=== PATIENT | male | born 1955 | race Caucasian/White ===

== ENCOUNTER 2017-02-11 13:53 | Inpatient (IN) | payer MEDICAID ==
[2017-02-11] MEDS ORDERED: methylPREDNISolone Sodium Succinate 125 MG/2 ML SDV IVPUSH ONE (14:17)
[2017-02-11] MEDS ORDERED: Albuterol/Ipratropium 3.0-0.5 MG/3 ML Neb Soln NEB ONE (14:17)
--- NOTE | 2017-02-11 14:17 | EDM.PDOC ---
ED HPI GENERAL MEDICAL PROBLEM - General Chief Complaint: Respiratory Problem Stated Complaint: FROM CLINIC SICK Time Seen by Provider: 02/11/17 14:17 Source of Information: Reports: Patient, Old Records, RN, RN Notes Reviewed History Limitations: Reports: No Limitations - History of Present Illness INITIAL COMMENTS - FREE TEXT/NARRATIVE: Sent from clinic due to shortness of breath and low oxygen sats. Pt state he developed a cough a week ago and has been having progressively worsening shortness of breath. He quit smoking one week ago. Denies fever, chest pain, or increasing edema. He has inhalers at home, but no nebulizer and no home oxygen. Onset: Gradual Duration: Week(s): (1) Location: Reports: Chest Severity: Severe Improves with: Reports: None Worsens with: Reports: Other (activity) Associated Symptoms: Reports: No Other Symptoms Treatments [employer]: Reports: Breathing Treatments (inhaler) - Related Data Allergies Allergy/AdvReac Type Severity Reaction Status Date / Time No Known Allergies Allergy Verified 02/10/13 07:02 Home Meds: Home Meds Acetaminophen/HYDROcodone [[place] 325-5 MG] 1 - 2 tab PO Q6H PRN 02/10/13 [ History] Digoxin 0.25 mg PO 02/10/13 [History] Warfarin [Coumadin] 02/10/13 [History] Warfarin [Coumadin] 7.5 mg PO 6XDAY 02/10/13 [History] metFORMIN [metFORMIN XR] 500 mg PO BIDM 02/10/13 [History] Past Medical History Cardiovascular History: Reports: Afib Respiratory History: Reports: COPD Endocrine/Metabolic History: Reports: Diabetes, Type II Social & Family History - Family History Family Medical History: Noncontributory - Tobacco Use Years of Tobacco use: 30 - Alcohol Use Days Per Week of Alcohol Use: 1 Number of Drinks Per Day: 1 Total Drinks Per Week: 1 - Recreational Drug Use Recreational Drug Use: No - Living Situation & Occupation Living situation: Reports: with Significant Other Occupation: Retired ED ROS GENERAL - Review of Systems Review Of Systems: ROS reveals no pertinent complaints other than HPI. ED EXAM, GENERAL - Physical Exam Exam: See Below Exam Limited By: No Limitations General Appearance: Alert, No Apparent Distress, Other (chronically ill appearing) Nose: Normal Inspection Throat/Mouth: Normal Oropharynx, Normal Voice, No Airway Compromise Head: Atraumatic, Normocephalic Neck: Normal Inspection, Supple, Non-Tender, Full Range of Motion Respiratory/Chest: No Respiratory Distress, No Accessory Muscle Use, Chest Non- Tender, Decreased Breath Sounds, Crackles, Wheezing Cardiovascular: Regular Rate, Rhythm, Other (B/L lower ext. edema R>L which is chronic and stable per pt.) GI/Abdominal: Normal Bowel Sounds, Soft, Non-Tender, No Distention (Male) Exam: Deferred Rectal (Males) Exam: Deferred Back Exam: Normal Inspection Extremities: Non-Tender, Pedal Edema Neurological: Alert, Oriented, CN II-XII Intact, Normal Cognition, Other ( chronic stable motor deficits) Psychiatric: Anxious Skin Exam: Warm, Dry, Intact, Normal Color, No Rash Course - Vital Signs Last Recorded V/S: Last Vital Signs Temp 36.9 C 02/11/17 14:16 Pulse 79 02/11/17 14:30 Resp 24 H 02/11/17 14:16 BP 108/74 02/11/17 14:16 Pulse Ox 82 L 02/11/17 14:16 - Orders/Labs/Meds Orders: Active Orders 24 hr Category Date Time Status Peripheral IV Care [RC] . DIRECTED Care 02/11/17 14:18 Active RT Aerosol Therapy [RC] ASDIRECTED Care 02/11/17 14:18 Active CULTURE BLOOD [BC] Stat Lab 02/11/17 14:18 Received CULTURE BLOOD [BC] Stat Lab 02/11/17 14:53 Received UA W/MICROSCOPIC [URIN] Stat Lab 02/11/17 15:15 Received Potassium Chloride [KCl 10 MEQ in Water 100 ML] 10 meq Med 02/11/17 15:02 Active Premix Bag 1 bag IV ONETIME Sodium Chloride 0.9% [Saline Flush] Med 02/11/17 14:17 Active 10 ml FLUSH ASDIRECTED PRN Blood Culture x2 Reflex Set [OM.PC] Stat Oth 02/11/17 14:18 Ordered Peripheral IV Insertion Adult [OM.PC] Stat Oth 02/11/17 14:17 Ordered Medication Orders Potassium Chloride 10 meq/ (Premix) 100 mls @ 100 mls/hr IV ONETIME ONE Stop: 02/11/17 16:01 Last Admin: 02/11/17 15:24 Dose: 100 mls/hr Sodium Chloride (Saline Flush) 10 ml FLUSH ASDIRECTED PRN PRN Reason: Keep Vein Open Last Admin: 02/11/17 15:23 Dose: 10 ml Labs: Laboratory Tests 02/11/17 02/11/17 02/11/17 Range/Units 14:18 14:18 14:18 WBC 11.4 H (5.0-10.0) 10^3/uL RBC 5.10 (4.6-6.2) 10^6/uL Hgb 15.6 (14.0-18.0) g/dL Hct 45.7 (40.0-54.0) % MCV 89.6 (80-100) fL MCH 30.6 (27.0-34.0) pg MCHC 34.1 (33.0-35.0) g/dL Plt Count 142 L (150-450) 10^3/uL Neut % (Auto) 81.6 H (42.2-75.2) % Lymph % (Auto) 8.5 L (20.5-50.1) % Custer % (Auto) 9.2 H (2-8) % Eos % (Auto) 0.5 L (1.0-3.0) % Baso % (Auto) 0.2 (0.0-1.0) % PT (9.0-12.0) SEC INR (0.9-1.2) Sodium 138 (135-145) mmol/L Potassium 2.9 L D (3.6-5.0) mmol/L Chloride 94 L D (101-111) mmol/L Carbon Dioxide 32.0 H (21.0-31.0) mmol/L Anion Gap 14.9 BUN 18 (7-18) mg/dL Creatinine 0.8 (0.6-1.3) mg/dL Est Cr Clr Drug Dosing 122.18 mL/min Estimated GFR (MDRD) > 60 BUN/Creatinine Ratio 22.50 Glucose 129 H (74-105) mg/dL Lactic Acid 1.9 (0.5-2.2) mmol/L Calcium 9.2 (8.4-10.2) mg/dl Total Bilirubin 1.2 H (0.2-1.0) mg/dL AST 33 (10-42) IU/L ALT 21 (10-60) IU/L Alkaline Phosphatase 80 (42-121) IU/L B-Natriuretic Peptide 24 (0-100) pg/ml Total Protein 7.1 (6.7-8.2) g/dl Albumin 4.0 (3.2-5.5) g/dl Globulin 3.1 Albumin/Globulin Ratio 1.29 02/11/17 Range/Units 14:18 WBC (5.0-10.0) 10^3/uL RBC (4.6-6.2) 10^6/uL Hgb (14.0-18.0) g/dL Hct (40.0-54.0) % MCV (80-100) fL MCH (27.0-34.0) pg MCHC (33.0-35.0) g/dL Plt Count (150-450) 10^3/uL Neut % (Auto) (42.2-75.2) % Lymph % (Auto) (20.5-50.1) % Custer % (Auto) (2-8) % Eos % (Auto) (1.0-3.0) % Baso % (Auto) (0.0-1.0) % PT 26.1 H (9.0-12.0) SEC INR 2.6 H (0.9-1.2) Sodium (135-145) mmol/L Potassium (3.6-5.0) mmol/L Chloride (101-111) mmol/L Carbon Dioxide (21.0-31.0) mmol/L Anion Gap BUN (7-18) mg/dL Creatinine (0.6-1.3) mg/dL Est Cr Clr Drug Dosing mL/min Estimated GFR (MDRD) BUN/Creatinine Ratio Glucose (74-105) mg/dL Lactic Acid (0.5-2.2) mmol/L Calcium (8.4-10.2) mg/dl Total Bilirubin (0.2-1.0) mg/dL AST (10-42) IU/L ALT (10-60) IU/L Alkaline Phosphatase (42-121) IU/L B-Natriuretic Peptide (0-100) pg/ml Total Protein (6.7-8.2) g/dl Albumin (3.2-5.5) g/dl Globulin Albumin/Globulin Ratio Meds: Medications Generic Name Dose Route Start Last Admin Trade Name Freq PRN Reason Stop Dose Admin Potassium Chloride 10 meq/ 100 mls @ 100 mls/hr 02/11/17 15:02 02/11/17 15:24 Premix IV 02/11/17 16:01 100 mls/hr ONETIME ONE Administration Sodium Chloride 10 ml 02/11/17 14:17 02/11/17 15:23 Saline Flush FLUSH 10 ml ASDIRECTED PRN Administration Keep Vein Open Discontinued Medications Generic Name Dose Route Start Last Admin Trade Name Freq PRN Reason Stop Dose Admin Albuterol/Ipratropium 3 ml 02/11/17 14:17 02/11/17 14:30 Duoneb 3.0-0.5 Mg/3 Ml NEB 02/11/17 14:18 3 ml ONETIME ONE Administration Lidocaine HCl 1 ml 02/11/17 15:02 02/11/17 15:31 Xylocaine-Mpf 1% INJECT 02/11/17 15:03 1 ml ONETIME ONE Administration Methylprednisolone Sodium Succinate 125 mg 02/11/17 14:17 02/11/17 15:21 Solu-Medrol IVPUSH 02/11/17 14:18 125 mg ONETIME ONE Administration Potassium Chloride 40 meq 02/11/17 15:03 02/11/17 15:20 Klor-Con 10 PO 02/11/17 15:04 40 meq ONETIME ONE Administration - Radiology Interpretation Free Text/Narrative:: CXR: COPD, see Rad. report. Departure - Departure Time of Disposition: 15:40 (admit to Dr. Stewart) Disposition: Admitted As Inpatient 64 Condition: Serious Clinical Impression: Acute exacerbation of COPD with asthma, Hypoxia, Hypokalemia - Discharge Information Forms: ED Department Discharge - My Orders Last 24 Hours: My Active Orders 02/11/17 14:17 Sodium Chloride 0.9% [Saline Flush] 10 ml FLUSH ASDIRECTED PRN Peripheral IV Insertion Adult [OM.PC] Stat 02/11/17 14:18 Peripheral IV Care [RC] . DIRECTED RT Aerosol Therapy [RC] ASDIRECTED CULTURE BLOOD [BC] Stat Blood Culture x2 Reflex Set [OM.PC] Stat 02/11/17 14:53 CULTURE BLOOD [BC] Stat 02/11/17 15:02 Potassium Chloride [KCl 10 MEQ in Water 100 ML] 10 meq Premix Bag 1 bag IV ONETIME 02/11/17 15:15 UA W/MICROSCOPIC [URIN] Stat - Assessment/Plan Last 24 Hours: My Active Orders 02/11/17 14:17 Sodium Chloride 0.9% [Saline Flush] 10 ml FLUSH ASDIRECTED PRN Peripheral IV Insertion Adult [OM.PC] Stat 02/11/17 14:18 Peripheral IV Care [RC] . DIRECTED RT Aerosol Therapy [RC] ASDIRECTED CULTURE BLOOD [BC] Stat Blood Culture x2 Reflex Set [OM.PC] Stat 02/11/17 14:53 CULTURE BLOOD [BC] Stat 02/11/17 15:02 Potassium Chloride [KCl 10 MEQ in Water 100 ML] 10 meq Premix Bag 1 bag IV ONETIME 02/11/17 15:15 UA W/MICROSCOPIC [URIN] Stat
[2017-02-11 14:46] LABS: CHLORIDE,CL 94 mmol/L (101-111); SODIUM,NA 138 mmol/L (135-145)
[2017-02-11] MEDS ORDERED: Potassium Chloride 10 MEQ in Premix Bag 1 BAG IV ONE (15:02)
[2017-02-11] MEDS ORDERED: Lidocaine 1% 30 ML SDV INJECT ONE (15:02)
[2017-02-11] MEDS ORDERED: Potassium Chloride 10 MEQ Tab.ER PO ONE (15:03)
[2017-02-11] MEDS: Sodium Chloride 0.9% 10 ML Syringe FLUSH PRN ×2 (15:23→16:50)
--- NOTE | 2017-02-11 15:32 | CR ---
CLINICAL HISTORY: 61 year-old wheelchair patient with cough and dyspnea (history of heart disease, i. e., atrial fibrillation). INTERPRETATION: Chronic mild bronchitic pattern with underlying prominence of the proximal pulmonary artery segments and generalized mild air trapping characteristic of reactive airway disease. Normal cardiac silhouette. No new cephalization of vascular flow, signs of alveolar edema or dependen t pleural effusion compared to 13 June 2011 exam. No lung mass, hilar lymphadenopathy or focal lobar pneumonia. No atelectasis/collapse. No pneumothora x. CONCLUSION: No acute new cardiopulmonary abnormality.
[2017-02-11] MEDS ORDERED: Acetaminophen/HYDROcodone 325-5 MG Tab PO PRN (16:14)
[2017-02-11] MEDS ORDERED: cefTRIAXone 2 GM Vial IVPUSH SCH (16:15)
[2017-02-11] MEDS ORDERED: Azithromycin 500 MG in Sodium Chloride 0.9% 250 ML IV SCH (16:15)
[2017-02-11] MEDS ORDERED: methylPREDNISolone Sodium Succinate 40 MG/1 ML SDV IVPUSH SCH (16:15)
[2017-02-11] MEDS ORDERED: Potassium Chloride 10 MEQ in Premix Bag 1 BAG IV SCH (16:15)
[2017-02-11] MEDS ORDERED: Albuterol/Ipratropium 3.0-0.5 MG/3 ML Neb Soln NEB SCH (16:15)
[2017-02-11] MEDS ORDERED: Zolpidem 5 MG Tab PO PRN (16:16)
[2017-02-11] MEDS ORDERED: Acetaminophen 325 MG Tab PO PRN (16:16)
[2017-02-11] MEDS ORDERED: Ondansetron 4 MG Tab.DIS PO PRN (16:16)
--- NOTE | 2017-02-11 16:44 | PCM.HP ---
H&P History of Present Illness - General Date of Service: 02/11/17 Admit Problem/Dx: Admission Diagnosis/Problem Admission Diagnosis/Problem Shortness of breath Source of Information: Patient - History of Present Illness Initial Comments - Free Text/Narative: The patient is a 61-year-old gentleman with a history of COPD. He also has diabetes, atrial fibrillation, hypertension. The patient's is sick with upper respiratory tract infection, she has been on oral antibiotics. Shunt has been experiencing increasing shortness of breath associated with cough , green sputum production. no fever. The patient denies chest pain, no palpitation. No abdominal pain. He has chronic leg edema and lower extremity weakness. - Related Data Allergies/Adverse Reactions: Allergies Allergy/AdvReac Type Severity Reaction Status Date / Time No Known Allergies Allergy Verified 02/11/17 16:30 Home Medications: Home Meds Acetaminophen/HYDROcodone [[place] 325-5 MG] 1 - 2 tab PO Q6H PRN 02/10/13 [ History] Digoxin 0.25 mg PO 02/10/13 [History] Warfarin [Coumadin] 02/10/13 [History] Warfarin [Coumadin] 7.5 mg PO 6XDAY 02/10/13 [History] metFORMIN [metFORMIN XR] 500 mg PO BIDM 02/10/13 [History] Past Medical History Cardiovascular History: Reports: Afib, Hypertension Respiratory History: Reports: COPD Gastrointestinal History: Reports: Cholelithiasis Endocrine/Metabolic History: Reports: Diabetes, Type II Oncologic (Cancer) History: Reports: Other (See Below) Other Oncologic History: CLL(chronic lymphoblastic leukemia dx 2005) - Past Surgical History HEENT Surgical History: Reports: Tonsillectomy GI Surgical History: Reports: Cholecystectomy, Other (See Below) Other GI Surgeries/Procedures: lithotripsy Male Surgical History: Reports: Kidney Stone Extraction, Nephrectomy Other Male Surgeries/Procedures: partial right nephrectomy Social & Family History - Family History Family Medical History: Noncontributory - Tobacco Use Smoking Status *Q: Former Smoker Years of Tobacco use: 30 Packs/Tins Daily: 2 Used Tobacco, but Quit: Yes Month Tobacco Last Used: feb 2017 Tobacco Use Comment: Pt states that he quit smoking 1 week ago - Caffeine Use Caffeine Use: Reports: Coffee, Soda - Alcohol Use Days Per Week of Alcohol Use: 1 Number of Drinks Per Day: 1 Total Drinks Per Week: 1 - Recreational Drug Use Recreational Drug Use: No - Living Situation & Occupation Living situation: Reports: with Significant Other Occupation: Retired H&P Review of Systems - Review of Systems: Review Of Systems: See Below General: Reports: Malaise, Weakness, Fatigue. Denies: Fever Pulmonary: Reports: Shortness of Breath, Cough, Sputum Cardiovascular: Reports: Edema. Denies: Chest Pain Psychiatric: Denies: Confusion Exam - Exam Exam: See Below - Vital Signs Vital Signs: Last Vital Signs Temp 36.9 C 02/11/17 14:16 Pulse 79 02/11/17 14:30 Resp 24 H 02/11/17 14:16 BP 108/74 02/11/17 14:16 Pulse Ox 82 L 02/11/17 14:16 Weight: 107.048 kg - Exam General: Alert, Oriented Neck: Supple Lungs: Normal Respiratory Effort, Decreased Breath Sounds. No: Wheezing Cardiovascular: Regular Rate, Regular Rhythm Extremities: Pedal Edema - Patient Data Result Diagrams: 02/11/17 14:18 02/11/17 14:18 *Q Meaningful Use (ADM) - VTE *Q VTE Criteria *Q: - Stroke *Q Stroke Criteria *Q: - AMI *Q AMI Criteria *Q: - Problem List (1) COPD exacerbation SNOMED Code(s): 874515266292685 ICD Code: J44.1 - CHRONIC OBSTRUCTIVE PULMONARY DISEASE W (ACUTE) EXACERBATION Status: Acute Current Visit: Yes Problem List Initiated/Reviewed/Updated: Yes Orders Last 24hrs: Active Orders 24 hr Category Date Time Status Allopurinol [Zyloprim] Med 02/11/17 21:00 Ordered 100 mg PO BEDTIME Diltiazem [Cardizem CD] Med 02/12/17 09:00 Ordered 360 mg PO DAILY Hydrochlorothiazide Med 02/12/17 09:00 Ordered 25 mg PO DAILY Tamsulosin [Flomax] Med 02/12/17 08:30 Ordered 0.4 mg PO PCBREAKFAST atorvaSTATin [Lipitor] Med 02/11/17 21:00 Ordered 10 mg PO BEDTIME Medication Orders Acetaminophen (Tylenol) 650 mg PO Q4H PRN PRN Reason: Pain (Mild 1-3)/fever Hydrocodone Bitart/Acetaminophen ([place] 325-5 Mg) 1 tab PO Q6H PRN PRN Reason: Abdominal Pain Albuterol/Ipratropium (Duoneb 3.0-0.5 Mg/3 Ml) 3 ml NEB .Q6H OTF Allopurinol (Zyloprim) 100 mg PO BEDTIME OTF Atorvastatin Calcium (Lipitor) 10 mg PO BEDTIME OTF Ceftriaxone Sodium (Rocephin) 1 gm IVPUSH Q24H [facility] Diltiazem HCl (Cardizem Cd) 360 mg PO DAILY OTF Hydrochlorothiazide (Hydrochlorothiazide) 25 mg PO DAILY [facility] Potassium Chloride 10 meq/ (Premix) 100 mls @ 50 mls/hr IV .Q2H OTF Azithromycin 500 mg/ Sodium (Chloride) 250 mls @ 250 mls/hr IV DAILY [facility] Insulin Aspart (Novolog) 0 unit SUBCUT TIDAC OTF PRN Reason: Protocol Methylprednisolone Sodium Succinate (Solu-Medrol) 40 mg IVPUSH .Q8 [facility] Non-Formulary Medication (Digoxin [Digoxin]) 0.25 mg PO DAILY [facility] Ondansetron HCl (Zofran Odt) 4 mg PO Q6H PRN PRN Reason: nausea, able to take PO Sodium Chloride (Saline Flush) 10 ml FLUSH ASDIRECTED PRN PRN Reason: Keep Vein Open Last Admin: 02/11/17 15:23 Dose: 10 ml Tamsulosin HCl (Flomax) 0.4 mg PO PCBREAKFAST [facility] Warfarin Sodium (Pharmacy To Dose - Warfarin) 1 dose .XX ASDIRECTED [facility] Zolpidem Tartrate (Ambien) 5 mg PO BEDTIME PRN PRN Reason: Sleep Assessment/Plan Comment:: Severe hypokalemia Replace with IV potassium Monitor on telemetry for possible arrhythmia Recheck potassium, magnesium, phosphorus Urinary tract infection Check urine culture Treat with Rocephin Acute COPD exacerbation Obtain sputum culture Treat with azithromycin, ceftriaxone Use DuoNeb, Solu-Medrol Acute hypoxemic respiratory failure Supplement oxygen as needed Atrial fibrillation with controlled ventricular rate Continue digoxin, Cardizem for rate control Anticoagulation for atrial fibrillation will be continued Monitor INR and adjust Coumadin as needed for target INR 2-3 Diabetes Well hold the metformin Follow blood sugars, use supplemental insulin and hypoglycemia protocol as needed DVT prophylaxis will be with full dose anticoagulation with Coumadin
[2017-02-11] MEDS: Azithromycin 500 MG in Sodium Chloride 0.9% 250 ML IV SCH (17:05)
[2017-02-11] MEDS: Insulin Aspart 100 Units/ML 3 ML Pen SUBCUT SCH (17:22)
[2017-02-11] MEDS: Potassium Chloride 20 MEQ in Premix Bag 1 BAG IV SCH ×3 (17:28→21:42)
[2017-02-11] MEDS ORDERED: Warfarin 2.5 MG Tab PO ONE (17:30)
[2017-02-11] MEDS: Albuterol/Ipratropium 3.0-0.5 MG/3 ML Neb Soln NEB SCH (17:58)
[2017-02-11] MEDS: atorvaSTATin 10 MG Tab PO SCH (21:12)
[2017-02-11] MEDS: Allopurinol 100 MG Tab PO SCH (21:12)
[2017-02-12] MEDS: Albuterol/Ipratropium 3.0-0.5 MG/3 ML Neb Soln NEB SCH ×4 (01:00→18:01)
[2017-02-12 07:13] LABS: CHLORIDE,CL 99 mmol/L (101-111); SODIUM,NA 139 mmol/L (135-145)
[2017-02-12] MEDS: Insulin Aspart 100 Units/ML 3 ML Pen SUBCUT SCH ×3 (08:10→17:35)
[2017-02-12] MEDS: Diltiazem 180 MG Cap.CD PO SCH (08:32)
[2017-02-12] MEDS: Tamsulosin 0.4 MG Cap.ER PO SCH (08:32)
[2017-02-12] MEDS: Hydrochlorothiazide 25 MG Tab PO SCH (08:32)
[2017-02-12] MEDS ORDERED: Non-Formulary Medication 1 Each (Digoxin [Digoxin] 0.25 MG) PO SCH (09:00)
[2017-02-12] MEDS ORDERED: Warfarin 5 MG Tab PO ONE (14:00)
[2017-02-12] MEDS: Digoxin 250 MCG Tab PO SCH (15:15)
[2017-02-12] MEDS ORDERED: cefTRIAXone 1 GM Vial IVPUSH SCH (17:00)
[2017-02-12] MEDS ORDERED: cefTRIAXone 2 GM Vial IVPUSH SCH (17:00)
[2017-02-12] MEDS: Azithromycin 500 MG in Sodium Chloride 0.9% 250 ML IV SCH (18:01)
[2017-02-12] MEDS: Budesonide 0.5 MG/2 ML Neb Susp NEB SCH (18:01)
[2017-02-12] MEDS: Allopurinol 100 MG Tab PO SCH (21:28)
[2017-02-12] MEDS: atorvaSTATin 10 MG Tab PO SCH (21:28)
[2017-02-13] MEDS: Albuterol/Ipratropium 3.0-0.5 MG/3 ML Neb Soln NEB SCH ×4 (02:07→17:42)
--- NOTE | 2017-02-13 03:25 | PN ---
DATE: 02/12/2017 SUBJECTIVE: Mr. Cayden Harris is a 61-year-old male with medical history significant for hypertension, hyperlipidemia, atrial fibrillation, type 2 diabetes mellitus, and chronic obstructive pulmonary disease, who was admitted to the hospital with complaints of increasing shortness of breath and was noted to be in acute COPD exacerbation along with possible upper respiratory tract infection and possible bronchitis. For the last 24 hours, the patient continues to have cough with sputum which is greenish-yellow in color. He denies any chest pain. His shortness of breath has improved. He denies any abdominal pain. No nausea. No vomiting. No diarrhea. REVIEW OF SYSTEMS: Cardiovascular, respiratory, gastrointestinal, neurology, and constitutional were all evaluated. PHYSICAL EXAMINATION: Vital Signs: Temperature of 97.9, pulse of 79, blood pressure of 110/63, respiratory rate of 20, saturating at 92% on 2 L of oxygen. General Appearance: The patient is well oriented to time, place, and person. Follows commands spontaneously. Cardiovascular System: S1, S2 heard with normal intensity. No gallops. Respiratory System: Mild crepitations bilaterally. Mild wheeze bilaterally. Abdomen: Soft. Bowel sounds positive. Nontender. No rigidity. Extremities: Mild edema in bilateral lower extremities. Neurology: No gross focal neurological deficits. MEDICATIONS: 1. Tylenol 650 every 4 hours as needed for pain. 2. Hydrocodone with acetaminophen 1 tablet every 6 hours as needed for pain. 3. DuoNeb every 6 hours. 4. Allopurinol 100 mg at bedtime. 5. Lipitor 10 mg at bedtime. 6. Zithromax 500 mg daily. 7. Ceftriaxone 1 g daily. 8. Diltiazem 360 mg daily. 9. Hydrochlorothiazide 25 mg daily. 10.Methylprednisone 40 mg IV q.8 hourly. 11.Digoxin 0.25 mg daily. 12.Flomax 0.4 mg daily. 13.Coumadin, pharmacy to dose. 14.Ambien 5 mg at bedtime as needed for sleep. LABORATORY DATA: Reviewed. 1. WBC 7.1, hemoglobin 14, hematocrit 42.4, platelet count 139. 2. Sodium 139, potassium 3.6, chloride 99, bicarb 29, BUN 25, creatinine 0.7 glucose 159. 3. Urinalysis large leukocytes, positive for nitrites. 4. Microbiology, urine culture and sputum culture are pending. ASSESSMENT: 1. Acute, chronic obstructive pulmonary disease exacerbation. 2. Possible pneumonia. 3. Possible urinary tract infection. 4. Hypertension. 5. Cwckw-uv-[id number] hypoxic respiratory failure. 6. Atrial fibrillation. 7. Chronic anticoagulation with Coumadin. 8. Type 2 diabetes mellitus. 9. Hypokalemia. PLAN: 1. Acute COPD exacerbation. The patient was presenting with increasing shortness of breath. He is currently on nebulizer treatment and IV methylprednisone. Continue the same. We will add incentive spirometer and flutter valve for better pulmonary toileting as the patient continues to have cough with sputum production. Continues to have mild crepitations. 2. Panjx-et-tbmyzwd hypoxic respiratory failure seems to be improving with current treatment plan. Continue with supplemental oxygen to maintain a saturation of 95%. 3. Hypokalemia. The patient received potassium chloride supplement. We will recheck a basic metabolic panel in the a.m. 4. Atrial fibrillation. The patient's rate seems to be well controlled. He is noted to be on digoxin and diltiazem. We will continue the same. 5. Chronic anticoagulation with Coumadin. Pharmacy to dose the Coumadin for therapeutic INR of 2 to 3. Recheck an INR in the a.m. 6. Urinary tract infection. We will follow the urine culture report. Continue ceftriaxone and Zithromax. We will titrate the antibiotics once we have the culture reports available. 7. Type 2 diabetes mellitus. He will be maintained on supplemental scaling insulin. Avoid any hypoglycemic episodes. Have him on hypoglycemic protocol. 8. Discussed with Dr. Stewart regarding the plan of care. [facility] /[id number]
[2017-02-13] MEDS: Budesonide 0.5 MG/2 ML Neb Susp NEB SCH ×2 (07:47→17:42)
[2017-02-13 08:11] LABS: CHLORIDE,CL 99 mmol/L (101-111); SODIUM,NA 139 mmol/L (135-145)
[2017-02-13] MEDS: Diltiazem 180 MG Cap.CD PO SCH (10:17)
[2017-02-13] MEDS: Tamsulosin 0.4 MG Cap.ER PO SCH (10:17)
[2017-02-13] MEDS: Hydrochlorothiazide 25 MG Tab PO SCH (10:21)
[2017-02-13] MEDS: Digoxin 250 MCG Tab PO SCH (10:21)
[2017-02-13] MEDS: Insulin Aspart 100 Units/ML 3 ML Pen SUBCUT SCH ×3 (10:41→17:51)
[2017-02-13] MEDS: Potassium Chloride 10 MEQ Tab.ER PO SCH ×2 (10:52→17:52)
[2017-02-13] MEDS: Sulfamethoxazole/Trimethoprim 800-160 MG Tab PO SCH ×2 (10:53→22:15)
--- NOTE | 2017-02-13 13:26 | PN ---
DATE: 02/13/2017 HISTORY OF PRESENT ILLNESS: Mr. Cayden Ulloa is a 61-year-old male with medical history significant for hypertension, hyperlipidemia, atrial fibrillation, type 2 diabetes mellitus, chronic obstructive pulmonary disease, admitted with complaints of increasing shortness of breath and was noted to be in acute COPD exacerbation along with urinary tract infection and possible bronchitis. For the last 24 hours, the patient continues to have mild shortness of breath improved with nebulizer treatment. Denies any chest pain. He complains of having cough. Denies any abdominal pain. No nausea. No vomiting. No diarrhea. REVIEW OF SYSTEMS: Cardiovascular, respiratory, gastrointestinal, neurology, constitutional were all evaluated. PHYSICAL EXAMINATION: Vital Signs: Temperature of 98.9, pulse of 67, blood pressure 113/59, respiratory rate of 20, saturating at 91% on 3 L of oxygen. General Appearance: The patient is well oriented to time, place, and person. Follows commands spontaneously. Cardiovascular System: S1 and S2 heard with normal intensity. No gallops. Respiratory System: No wheeze. Mild crepitations at the bases. Abdomen: Soft. Bowel sounds positive. Nontender. No rigidity. No guarding. No rebound tenderness. Extremities: Mild edema around the ankle bilaterally. Neurology: No gross focal neurological deficit. MEDICATIONS: 1. Tylenol 650 every 4 hours as needed for pain. 2. Percocet as needed for pain. 3. DuoNeb 3 mL nebulizer q.6 hours. 4. Allopurinol 100 mg at bedtime. 5. Lipitor 10 mg at bedtime. 6. Pulmicort 0.5 mg nebulizer twice a day. 7. Digoxin 250 mcg daily. 8. Diltiazem 360 mg daily. 9. Hydrochlorothiazide 25 mg daily. 10.NovoLog supplemental scale. 11.Methylprednisolone 40 mg IV q.8 hourly. 12.Potassium chloride 40 mEq twice a day. 13.Flomax 0.4 mg oral, breakfast. 14.Bactrim DS. 15.Coumadin, pharmacy to dose. 16.Ambien 5 mg at bedtime as needed for sleep. LABORATORY DATA: Reviewed. WBC 9.5, hemoglobin 14.3, hematocrit 43.6, platelet count 168. INR 4. Sodium 139, potassium 2.7, chloride 99, bicarb 31, BUN 26, creatinine 0.6, glucose 131. Microbiology; urine culture positive for Enterobacter sensitive to Bactrim. ASSESSMENT: 1. Acute chronic obstructive pulmonary disease exacerbation. 2. Possible bronchitis. 3. Urinary tract infection with Enterobacter. 4. On chronic anticoagulation with Coumadin. 5. Acute on chronic respiratory failure with hypoxia. 6. Atrial fibrillation. 7. Type 2 diabetes mellitus. 8. Hypokalemia. PLAN: 1. Acute chronic obstructive pulmonary disease exacerbation. The patient is currently on DuoNeb and Pulmicort nebulizer and also IV methylprednisone, continue same. His wheezing is much improved from yesterday, but continues to have mild crackles, closely follow. 2. Acute respiratory failure. The patient continues to be hypoxic. He is requiring nasal cannula oxygen between 2 to 3 L. the patient was not on any oxygen at home. Continue with supplemental oxygen to maintain saturation of 95%. 3. Hypokalemia. The patient is noted to have severe hypokalemia. We will replace with 40 mEq oral potassium twice a day. We will recheck a potassium later in the evening and replace accordingly. 4. Atrial fibrillation. Rate is well controlled. Continue with Coumadin. Continue the digoxin and diltiazem. 5. Chronic anticoagulation. His INR is elevated. This is mainly from drug interaction of Zithromax. We discontinued the Ceftriaxone and Zithromax. We will put him on Bactrim. He has Enterobacter growing in the urine and the urine culture is sensitive to Bactrim. We will closely follow. 6. Type 2 diabetes mellitus. Continue with supplemental scale insulin. Avoid any hypoglycemic episodes. Have him on hypoglycemic protocol. 7. We will have PT/OT evaluate and treat the patient. [facility] /[id number]
[2017-02-13] MEDS ORDERED: Loperamide 2 MG Cap PO PRN (15:50)
[2017-02-13] MEDS ORDERED: Potassium Chloride 10 MEQ Tab.ER PO ONE (18:39)
[2017-02-13] MEDS: Allopurinol 100 MG Tab PO SCH (22:15)
[2017-02-13] MEDS: atorvaSTATin 10 MG Tab PO SCH (22:15)
[2017-02-14] MEDS: Albuterol/Ipratropium 3.0-0.5 MG/3 ML Neb Soln NEB SCH ×4 (01:37→17:58)
[2017-02-14 06:50] LABS: CHLORIDE,CL 102 mmol/L (101-111); SODIUM,NA 140 mmol/L (135-145)
[2017-02-14] MEDS: Budesonide 0.5 MG/2 ML Neb Susp NEB SCH ×2 (07:32→17:58)
[2017-02-14] MEDS: Potassium Chloride 10 MEQ Tab.ER PO SCH ×3 (08:11→21:54)
[2017-02-14] MEDS: Tamsulosin 0.4 MG Cap.ER PO SCH (08:13)
[2017-02-14] MEDS: Insulin Aspart 100 Units/ML 3 ML Pen SUBCUT SCH ×3 (08:27→17:25)
[2017-02-14] MEDS: Digoxin 250 MCG Tab PO SCH (09:30)
[2017-02-14] MEDS: Sulfamethoxazole/Trimethoprim 800-160 MG Tab PO SCH ×2 (09:31→21:54)
[2017-02-14] MEDS: Diltiazem 180 MG Cap.CD PO SCH (09:31)
[2017-02-14] MEDS: Hydrochlorothiazide 25 MG Tab PO SCH (09:32)
--- NOTE | 2017-02-14 12:47 | PN ---
DATE: 02/14/2017 SUBJECTIVE: Mr. Cayden Ulloa is a 61-year-old male with medical history significant for hypertension, hyperlipidemia, atrial fibrillation, type 2 diabetes mellitus, chronic obstructive pulmonary disease, admitted with increasing shortness of breath and noted to be in acute COPD exacerbation with underlying urinary tract infection and possible bronchitis. For the last 24 hours, the patient continues to have cough, complained of having loose stools yesterday and abdominal distention. Denies any chest pain. Complains of mild shortness of breath and aggravated on exertion. Denies any nausea or vomiting at this time. REVIEW OF SYSTEMS: Cardiovascular, respiratory, gastrointestinal, neurology, constitutional were all evaluated. PHYSICAL EXAMINATION: Vital Signs: Temperature of 98.6, pulse of 85, respiratory rate of 20, saturating at 93% on 3 L of oxygen, blood pressure 110/61. General Appearance: Patient is well oriented to time, place, and person. Follows commands spontaneously. Cardiovascular System: S1, S2 heard with normal intensity. No gallops. Respiratory System: Clear to auscultation bilaterally. Mild crepitations at the bases. No wheeze. Abdomen: Soft. Bowel sounds positive. Nontender. No rigidity. Extremities: No edema in bilateral lower extremities. Neurology: No gross focal neurological deficit. MEDICATIONS: 1. Tylenol 650 every 4 hours as needed for pain. 2. Viv[place] 5/325 mg every 6 hours as needed for pain. 3. DuoNeb 3 mL nebulizer q.6 hours. 4. Allopurinol 100 mg at bedtime. 5. Lipitor 10 mg at bedtime. 6. Pulmicort 0.5 mg twice a day. 7. Digoxin 250 mcg daily. 8. Diltiazem 360 mg daily. 9. Hydrochlorothiazide 25 mg daily. 10.Imodium 2 mg every 4 hours as needed for diarrhea. 11.Methylprednisone 40 mg IV q.8 hourly. 12.Potassium chloride 40 mg 3 times a day. 13.Flomax 0.4 mg. 14.Bactrim DS 1 tablet twice a day. 15.Pharmacy to dose of Coumadin. 16.Ambien 5 mg at bedtime as needed for sleep. LABORATORY DATA: Reviewed. Sodium 140, potassium 3.1, chloride 102, bicarb 29, BUN 19, creatinine 0.6. WBC 7.7, hemoglobin 14.7, hematocrit 43.8, platelet count 167. INR 2.9. ASSESSMENT: 1. Acute chronic obstructive pulmonary disease exacerbation. 2. Possible bronchitis. 3. Urinary tract infection with Enterobacter. 4. Chronic anticoagulation with Coumadin. 5. Fdjda-mt-[id number] respiratory failure with hypoxia. 6. Atrial fibrillation. 7. Type 2 diabetes mellitus. 8. Hypokalemia. 9. Diarrhea. PLAN: 1. Acute chronic obstructive pulmonary disease exacerbation, seems to be improving. Continue with current nebulizer treatment with DuoNeb and Pulmicort nebulizers. The patient is encouraged to use incentive spirometer and flutter valve for better pulmonary toileting. We will gradually wean down the steroids. 2. Diarrhea. The patient had loose stools yesterday. We will obtain stool for C. diff toxin, given his antibiotic exposure and we will closely follow. Use Imodium as needed. The patient is noted to have distended abdomen, one has to think of possibly ileus also. 3. Urinary tract infection. The patient's urine cultures are positive for Enterobacter, sensitive to Bactrim. We will continue with Bactrim for now. He was on ceftriaxone and Zithromax, but this was interacting with Coumadin, so we had to hold on the antibiotic with Zithromax. 4. Ezkxq-jf-pqwedit respiratory failure. The patient continues to be on nasal cannula oxygen, gradually wean down the oxygen as tolerated. 5. Atrial fibrillation. Continue with diltiazem and digoxin. His rate seems to be well controlled. Continue with Coumadin pharmacy to dose including therapeutic INR of 2 to 3. 6. Type 2 diabetes mellitus. Check his fingersticks with each meals, have him on supplemental scale insulin as needed. Try to avoid any hypoglycemic episodes. 7. PT and OT to evaluate and treat. [facility] /[id number]
[2017-02-14] MEDS ORDERED: Warfarin 5 MG Tab PO ONE (14:00)
[2017-02-14] MEDS ORDERED: methylPREDNISolone Sodium Succinate 40 MG/1 ML SDV IVPUSH ONE (15:15)
[2017-02-14] MEDS: Sodium Chloride 0.9% 10 ML Syringe FLUSH PRN (15:17)
[2017-02-14] MEDS: Allopurinol 100 MG Tab PO SCH (21:54)
[2017-02-14] MEDS: methylPREDNISolone Sodium Succinate 40 MG/1 ML SDV IVPUSH SCH (21:55)
[2017-02-14] MEDS: atorvaSTATin 10 MG Tab PO SCH (21:55)
[2017-02-15] MEDS: Albuterol/Ipratropium 3.0-0.5 MG/3 ML Neb Soln NEB SCH ×4 (00:32→17:59)
[2017-02-15] MEDS: methylPREDNISolone Sodium Succinate 40 MG/1 ML SDV IVPUSH SCH ×3 (07:04→21:50)
[2017-02-15] MEDS: Budesonide 0.5 MG/2 ML Neb Susp NEB SCH ×2 (07:07→17:59)
[2017-02-15 07:18] LABS: CHLORIDE,CL 102 mmol/L (101-111); SODIUM,NA 137 mmol/L (135-145)
[2017-02-15] MEDS ORDERED: Benzocaine/Cetylpyridinium/Menthol Lozenge MUCMEM PRN (08:35)
[2017-02-15] MEDS: Insulin Aspart 100 Units/ML 3 ML Pen SUBCUT SCH ×4 (08:51→21:50)
[2017-02-15] MEDS: Potassium Chloride 10 MEQ Tab.ER PO SCH ×3 (08:52→21:52)
[2017-02-15] MEDS: Sulfamethoxazole/Trimethoprim 800-160 MG Tab PO SCH ×2 (08:52→21:52)
[2017-02-15] MEDS: Diltiazem 180 MG Cap.CD PO SCH (08:52)
[2017-02-15] MEDS: Hydrochlorothiazide 25 MG Tab PO SCH (08:52)
[2017-02-15] MEDS: Tamsulosin 0.4 MG Cap.ER PO SCH (08:52)
[2017-02-15] MEDS: Digoxin 250 MCG Tab PO SCH (08:52)
--- NOTE | 2017-02-15 11:40 | PN ---
DATE: 02/15/2017 SUBJECTIVE: Mr. Cayden Ulloa is a 61-year-old male with medical history significant for hypertension, hyperlipidemia, atrial fibrillation, type 2 diabetes mellitus, chronic obstructive pulmonary disease, admitted with increasing shortness of breath and was noted to be in COPD exacerbation with underlying urinary tract infection and bronchitis. For the last 24 hours, the patient continues to have cough, continues to have mild shortness of breath. Denies any chest pain. No abdominal pain. Continues to have some loose stools. Denies any nausea or vomiting at this time. REVIEW OF SYSTEMS: Cardiovascular, Respiratory, Gastrointestinal, Neurology, Constitutional were all evaluated. PHYSICAL EXAMINATION: Vital Signs: Temperature of 98.9, pulse of 90, blood pressure of 125/76, respiratory rate of 20, saturating at 90% on 4 L of oxygen. General Appearance: The patient is well oriented to time, place, and person. Follows commands spontaneously. Cardiovascular System: S1 and S2 heard with normal intensity. No gallops. Respiratory System: Bilateral crepitations at the bases. Mild wheeze. Abdomen: Soft. Bowel sounds positive. Nontender. No rigidity. Extremities: No edema in bilateral lower extremities. Neurology: No gross focal neurological deficit. MEDICATIONS: Reviewed. Continue the same. 1. We will add Cepacol lozenges. 2. Continue with Bactrim. 3. Continue the DuoNeb and Pulmicort nebulizer along with methylprednisone. LABORATORY DATA: Sodium 137, potassium 3.8, chloride 102, bicarb 26, BUN 22, creatinine 0.6, glucose 183. INR 2.7. ASSESSMENT: 1. Acute exacerbation of chronic obstructive pulmonary disease. 2. Possible bronchitis. 3. Urinary tract infection with Enterobacter. 4. Chronic anticoagulation with Coumadin. 5. Fxzmb-wz-kcauvls respiratory failure with hypoxia. 6. Atrial fibrillation. 7. Type 2 diabetes mellitus. 8. Diarrhea. PLAN: 1. Acute chronic obstructive pulmonary disease exacerbation: Seems to be improving. Continue current nebulizer treatment and steroids. We will also have him on incentive spirometer and flutter valve for better pulmonary toileting. We will get a chest x-ray at this time as he continues to have cough and mild crepitations at the base. We will closely follow. 2. Urinary tract infection: This is mainly from Enterobacter and is sensitive to Bactrim. He is currently on Bactrim. We will get a chest x-ray to see if he is not developing any pneumonia as he continues to have cough. If he develops any changes on the x-ray, then one might consider broadening the spectrum of antibiotic. He was on ceftriaxone and Zithromax initially, but we had to discontinue the Zithromax as it was interacting with Coumadin, leading to higher INR. 3. Qspzm-bz-asysfoq respiratory failure with hypoxia: Continue with supplemental oxygen to maintain a saturation of 95%. 4. Type 2 diabetes mellitus: We will check his fingersticks with each meals, have him on supplemental scale insulin as needed for additional coverage of his blood glucose. His sugars could be elevated secondary to his steroid dosing. We will be cautious. 5. DVT prophylaxis: The patient is currently on Coumadin, continue the same. 6. Atrial fibrillation: Rate well controlled. Continue digoxin and diltiazem. [facility] /[id number]
[2017-02-15] MEDS ORDERED: Warfarin 5 MG Tab PO SCH (14:00)
[2017-02-15] MEDS ORDERED: Sodium Chloride 0.65% Nasal Spray 45 ML Bottle NASBOTH PRN (18:42)
[2017-02-15] MEDS: Allopurinol 100 MG Tab PO SCH (21:52)
[2017-02-15] MEDS: atorvaSTATin 10 MG Tab PO SCH (21:52)
[2017-02-16] MEDS: Albuterol/Ipratropium 3.0-0.5 MG/3 ML Neb Soln NEB SCH ×4 (00:38→17:09)
[2017-02-16] MEDS: methylPREDNISolone Sodium Succinate 40 MG/1 ML SDV IVPUSH SCH ×3 (05:49→21:25)
[2017-02-16 07:07] LABS: CHLORIDE,CL 102 mmol/L (101-111); SODIUM,NA 137 mmol/L (135-145)
[2017-02-16] MEDS: Budesonide 0.5 MG/2 ML Neb Susp NEB SCH ×2 (07:20→17:09)
[2017-02-16] MEDS: Insulin Aspart 100 Units/ML 3 ML Pen SUBCUT SCH ×4 (08:55→21:18)
[2017-02-16] MEDS: Hydrochlorothiazide 25 MG Tab PO SCH (08:55)
[2017-02-16] MEDS: Digoxin 250 MCG Tab PO SCH (08:55)
[2017-02-16] MEDS: Sulfamethoxazole/Trimethoprim 800-160 MG Tab PO SCH ×2 (08:56→21:21)
[2017-02-16] MEDS: Potassium Chloride 10 MEQ Tab.ER PO SCH (08:56)
[2017-02-16] MEDS: Tamsulosin 0.4 MG Cap.ER PO SCH (08:56)
[2017-02-16] MEDS: Diltiazem 180 MG Cap.CD PO SCH (08:56)
[2017-02-16] MEDS ORDERED: Sodium Chloride 0.9% 1,000 ML IV SCH (13:45)
[2017-02-16] MEDS ORDERED: Warfarin 2.5 MG Tab PO ONE (14:00)
[2017-02-16] MEDS ORDERED: Iopamidol 755 Mg/ML 100 ML Bottle IVPUSH ONE (14:27)
--- NOTE | 2017-02-16 14:32 | PN ---
DATE: 02/16/2017 HISTORY OF PRESENT ILLNESS: Mr. Cayden Magaña is a 61-year-old male with medical history significant for hypertension, hyperlipidemia, atrial fibrillation, type 2 diabetes mellitus, chronic obstructive pulmonary airway disease, admitted with increasing shortness of breath and was noted to be in COPD exacerbation with underlying urinary tract infection and possible bronchitis. For the last 24 hours, the patient continues to have cough, continues to be on nasal cannula oxygen. He continues to have tachycardia on exertion. Denies any chest pain. Mild shortness of breath. No abdominal pain. No nausea. No vomiting, and complains of having loose stools. REVIEW OF SYSTEMS: Cardiovascular, respiratory, gastrointestinal, neurology, constitutional were all evaluated. PHYSICAL EXAMINATION: Vital Signs: Temperature of 97.9, pulse of 86, blood pressure 116/59, respiratory rate 20, saturating at 94% on 2 L of oxygen. General Appearance: The patient is well oriented to time, place, and person. Follows commands spontaneously. Cardiovascular System: S1, S2 heard with normal intensity. No gallops. Respiratory System: Clear to auscultation bilaterally. No wheeze. Mild crepitations at the bases. Abdomen: Soft. Bowel sounds positive. Distended. Tympanic to percussion. Extremities: No edema in bilateral lower extremities. Neurology: No gross focal neurological deficit. MEDICATIONS: 1. Tylenol 650 every 4 hours as needed for pain. 2. [address] 1 tablet every 6 hours as needed for pain. 3. DuoNeb 3 mL nebulizer every 6 hours. 4. Allopurinol 100 mg at bedtime. 5. Lipitor 10 mg at bedtime. 6. Cepacol lozenges. 7. Pulmicort nebulizers twice a day. 8. Digoxin 250 mcg daily. 9. Diltiazem 360 mg daily. 10.Hydrochlorothiazide 25 mg daily. 11.Imodium 2 mg every 4 hours as needed for diarrhea. 12.methylprednisolone 40 mg IV q.8 hourly. 13.Potassium chloride 40 mEq 3 times a day. 14.Digoxin 250 mcg daily. 15.Coumadin, pharmacy to dose. 16.Flomax 0.4 mg oral daily. 17.Bactrim twice a day. LABORATORY DATA: Reviewed. Sodium 137, potassium 4.3, chloride 102, bicarb 29, BUN 28, creatinine 0.7, glucose 215. ASSESSMENT: 1. Acute exacerbation of chronic obstructive pulmonary airway disease. 2. Possible bronchitis. 3. Urinary tract infection with Enterobacter. 4. Chronic anticoagulation with Coumadin. 5. Acute on chronic respiratory failure with hypoxia. 6. Atrial fibrillation. 7. Type 2 diabetes mellitus. 8. Diarrhea. PLAN: 1. Acute chronic obstructive pulmonary disease exacerbation. His wheezing is much improved. He is currently on nebulizer treatment and IV methylprednisolone. We will closely follow the patient. 2. Acute hypoxic respiratory failure. The patient continues to be hypoxic. His BNP is within normal limits. His chest x-ray did not show any infiltrates, but continues to be hypoxic, so we will get a CT scan of the chest with PE protocol to make sure we are not missing any pulmonary embolism in this patient, otherwise less likely at this juncture, we will go to go ahead and get a CT scan with PE protocol. The patient was explained about the risks, benefits, and complications of getting an IV dye study which he understands. We will put him on IV normal saline at 75 mL/h for 10 hours to avoid any renal complications. 3. Urinary tract infection. The patient is noted to have Enterobacter culture reports. He is currently on IV antibiotics. Continue the same. 4. Hypokalemia, resolved. The patient's potassium back to normal. We will change the potassium chloride to 20 mEq twice a day. 5. Type 2 diabetes mellitus, elevated secondary to his steroid dosing. We will further dose adjust the insulin. Try to avoid any hypoglycemic episodes. Have him on supplemental scale insulin as needed for additional coverage of his blood glucose. 6. Atrial fibrillation, rate controlled. Continue with digoxin and diltiazem. He continues to have tachycardia in ambulation and hypoxia. We will continue the Coumadin. Pharmacy to dose the Coumadin for therapeutic INR of 2 to 3. 7. The patient gets tachycardic on exertion, so we are holding off the physical therapy for now, till we stabilize the patient. [facility] /[id number]
--- NOTE | 2017-02-16 16:27 | CT ---
Clinical history: 61-year-old hypertensive 233 pound diabetic male smoker with history of heart disea se, cough and shortness of breath. Rule out pulmonary embolism/infarct. Scan technique: Volume acquisition of data from the chest (bony thorax, lungs and mediastinum) obtain ed during intravenous administration 79 cc nonionic Isovue 370 contrast (5 cc/s via injector) while t he patient was lying supine on the Siemens multi slice scanner [facility]. All data archived in the PACS system for storage, reformatting axial/sagittal/coronal plan es and study. Interpretation: 1. *No sign of intraluminal filling defect or thrombus in the pulmonary artery circulation. 2. Asymmetric small dependent pleural effusion with underlying atelectasis, posteriorly, both lung ba ses (R>L). Pneumonitis? Infarct? 3. No other peripheral pleural-based wedge shaped infarcts. No abnormal areas of lobar oligemia, othe r infiltrate or atelectasis. 4. Normal cardiac silhouette. No pericardial effusion. No cephalization of vascular flow or signs of alveolar edema. 5. Peribronchial "cuffing", a few scattered lung cysts and generalized mild air trapping typical reac tive airway disease. 6. No parenchymal lung nodule or mass lesion and no signs of hilar/mediastinal lymphadenopathy. 7. Normal caliber thoracic aorta. Chronic hypertrophic arthritic changes of the spine. CONCLUSION: Low probability pulmonary embolism. Bilateral lower lobe atelectasis or infiltrates (infa rcts in differential). No signs of heart failure, lung malignancy or lymphadenopathy.
[2017-02-16] MEDS: Allopurinol 100 MG Tab PO SCH (21:21)
[2017-02-16] MEDS: atorvaSTATin 10 MG Tab PO SCH (21:21)
[2017-02-16] MEDS: Sodium Chloride 0.9% 10 ML Syringe FLUSH PRN (21:48)
[2017-02-17] MEDS: Albuterol/Ipratropium 3.0-0.5 MG/3 ML Neb Soln NEB SCH ×5 (01:23→17:19)
[2017-02-17] MEDS: Sodium Chloride 0.9% 10 ML Syringe FLUSH PRN ×4 (05:41→21:26)
[2017-02-17] MEDS: methylPREDNISolone Sodium Succinate 40 MG/1 ML SDV IVPUSH SCH (05:42)
[2017-02-17 07:08] LABS: CHLORIDE,CL 103 mmol/L (101-111); SODIUM,NA 136 mmol/L (135-145)
[2017-02-17] MEDS: Budesonide 0.5 MG/2 ML Neb Susp NEB SCH ×3 (07:14→17:20)
[2017-02-17] MEDS: Insulin Aspart 100 Units/ML 3 ML Pen SUBCUT SCH ×4 (08:23→21:25)
[2017-02-17] MEDS: Sulfamethoxazole/Trimethoprim 800-160 MG Tab PO SCH ×2 (08:24→21:14)
[2017-02-17] MEDS: Diltiazem 180 MG Cap.CD PO SCH (08:24)
[2017-02-17] MEDS: Potassium Chloride 10 MEQ Tab.ER PO SCH ×2 (08:24→17:26)
[2017-02-17] MEDS: Digoxin 250 MCG Tab PO SCH (08:24)
[2017-02-17] MEDS: Hydrochlorothiazide 25 MG Tab PO SCH (08:25)
[2017-02-17] MEDS: Tamsulosin 0.4 MG Cap.ER PO SCH (08:25)
--- NOTE | 2017-02-17 12:33 | PN ---
DATE: 02/17/2017 SUBJECTIVE: Mr. Cayden Hernandez is a 61-year-old male with a medical history significant for hypertension, hyperlipidemia, atrial fibrillation, chronic obstructive pulmonary disease, admitted with increasing shortness of breath and noted to be in COPD exacerbation with underlying urinary tract infection, possible bronchitis. For the last 24 hours, the patient continues to have cough. The patient had a CT scan of the chest, which did not show any acute PE, did not show any acute infiltrates, but noted to have some mild atelectasis on the lower lobes bilaterally, but more so on the right side. Denied any abdominal pain, but continues to have loose stools, 1 to 2 episodes per day. He has tested negative for Clostridium difficile toxin. REVIEW OF SYSTEMS: Cardiovascular, Respiratory, Gastrointestinal, Neurology, Constitutional were all evaluated. PHYSICAL EXAMINATION: Vital Signs: Temperature of 97.6, pulse of 84, blood pressure of 120/62, respiratory rate of 20, saturating 95% on 3 L of oxygen. General Appearance: The patient is well oriented to time, place, and person. Follows commands spontaneously. Cardiovascular System: S1 and S2 heard with normal intensity. No gallops. Respiratory System: Clear to auscultation bilaterally. No wheeze. No crepitations. Abdomen: Soft. Bowel sounds positive. Nontender. No rigidity. Extremities: No edema in bilateral lower extremities. LABORATORY DATA: Sodium 136, potassium 4.5, chloride 103, bicarb 27, BUN 34, creatinine 0.7, glucose 281. MEDICATIONS: 1. Tylenol 650 every 4 hours as needed for pain. 2. [place] as needed. 3. DuoNeb 3 mL nebulizer q.6 hours. 4. Allopurinol 100 mg daily. 5. Lipitor 10 mg at bedtime. 6. Pulmicort 0.5 mg nebulizer twice a day. 7. Digoxin 250 mcg daily. 8. Diltiazem 360 mg daily. 9. Hydrochlorothiazide 25 mg daily. 10.Levemir 35 units daily. 11.Potassium chloride 20 mEq twice a day. 12.Flomax 0.4 mg daily. 13.Bactrim 1 tablet twice a day. 14.Coumadin, pharmacy to dose. 15.Ambien 5 mg at bedtime as needed for sleep. ASSESSMENT: 1. Acute chronic obstructive pulmonary disease exacerbation. 2. Acute hypoxic respiratory failure. 3. Possible bronchitis. 4. Urinary tract infection with Enterobacter. 5. Chronic anticoagulation with Coumadin. 6. Type 2 diabetes mellitus. 7. Diarrhea. PLAN: 1. Diarrhea: The patient continues to have loose stools. His stool for Clostridium difficile toxin is negative. We will continue with Imodium. We will order for an x-ray of the abdomen for further evaluation. 2. Acute respiratory failure: The patient continues to be hypoxic. We had a pulmonary function test done in the past. We will do a walking desaturation study and see how much oxygen he needs to maintain a saturation of 90% to 95%. 3. Acute bronchitis: The patient is currently on antibiotic with Bactrim. CT scan of the chest did not show any evidence of acute infiltrates except for atelectasis. We will continue the incentive spirometer and flutter valve. Continue with the nebulizer treatment. 4. Hypertension: The patient's blood pressure seems to be in acceptable range. Continue with current treatment plan with diltiazem. 5. Atrial fibrillation: The patient continues to be in atrial fibrillation, but rate control at rest. On exertion, he is noted to be having rapid ventricular response. We will do a walking desaturation study. Possibly, the patient would need more oxygen on exertion. He is currently on digoxin and diltiazem; continue the same. If continues to have elevated heart rate on exertion, we might consider adding a beta jovani at that time. We will closely follow. 6. Urinary tract infection: He is noted to have Enterobacter, susceptible to Bactrim; continue the same. 7. Chronic anticoagulation with Coumadin: Pharmacy to dose the Coumadin for therapeutic INR of 3. 8. Type 2 diabetes mellitus, uncontrolled: The patient continues to have elevated blood sugar. This could be resulting from steroid dosing. We added Levemir at night. We will increase the Levemir dose to check his fingersticks with each meals. Have him on supplemental scale insulin. We will switch him to oral prednisone. This might improve his diabetes control. 9. Hypokalemia: Resolved. 10.Continued physical therapy and occupational therapy. We were unable to have the patient participate in active PT secondary to rapid ventricular response on exertion. We will closely follow the patient. [facility] /[id number]
[2017-02-17] MEDS ORDERED: *** HOLD WARFARIN TODAY PO ONE (14:00)
--- NOTE | 2017-02-17 14:36 | CR ---
Clinical history: 61-year-old diabetic male smoker with heart disease, shortness of breath, and abdom inal distention. Abdominal series (4 films) confirms pronounced dilatation ascending right, transverse and descending left colon (normal gas pattern in the rectosigmoid colon) with long air-fluid level in the transverse colon midabdomen. No abnormal dilatation of the small intestine. Surgical clips gallbladder fossa right upper quadrant. No abdominal soft tissue mass lesion. No free subdiaphragmatic air. Lung bases clear. CONCLUSION: Atonic colon (drugs? Diabetes?) versus acute distal large bowel obstruction (adhesion?). Clinical tumor
--- NOTE | 2017-02-17 14:46 | CT ---
Clinical history: 61-year-old diabetic male smoker with abdominal distention and pain (abnormal plain film appearance). Scan technique: Volume acquisition of data emergency unenhanced CT scan of the abdomen and pelvis obt ained with patient lying supine on the Siemens multi slice CT scanner [place], [place]. All data archived in the PACS system for storage, reformatting axial/sagittal/coron al planes and study. Interpretation: 1. Multilevel disc disease and chronic hypertrophic arthritic changes lumbar spine. 2. Distended large intestine from the cecum to the descending left colon (half filled with gas and de pendently layering fluid). 3. No pelvic mass lesion. No inflammatory "dirty" pericolonic peritoneal fat or diverticulitis. Erika l caliber rectosigmoid colon. 4. No sign of mechanical small bowel obstruction and stomach unremarkable. No mesenteric/retroperiton eal lymphadenopathy. 5. Atheromatous calcifications scattered across the course of normal caliber aortoiliac vessels. No a neurysm. 6. Surgically absent gallbladder (clips). Liver, spleen, atrophic pancreas and adrenal glands unremar kable. Nephrolithiasis scarred left kidney and solitary 2.3 cm diameter benign-appearing cyst lower p ole right kidney. No obstructive uropathy. 7. No ventral wall or inguinal hernias. No sign of internal hernia or volvulus. 8. Lung bases clear. CONCLUSION: No intraperitoneal mass lesion or signs of mechanical small bowel obstruction. Abnormal c olonic distention.
[2017-02-17] MEDS: Metoprolol Tartrate 25 MG Tab PO SCH ×2 (16:03→21:13)
[2017-02-17] MEDS ORDERED: Insulin Detemir 100 Units/ML 3 ML Pen SUBCUT SCH ×2 (19:00)
[2017-02-17] MEDS: Allopurinol 100 MG Tab PO SCH (21:14)
[2017-02-17] MEDS: atorvaSTATin 10 MG Tab PO SCH (21:14)
[2017-02-17] MEDS: Insulin Detemir 100 Units/ML 3 ML Pen SUBCUT SCH (21:29)
[2017-02-18] MEDS: Albuterol/Ipratropium 3.0-0.5 MG/3 ML Neb Soln NEB SCH ×4 (01:00→19:00)
[2017-02-18] MEDS: Budesonide 0.5 MG/2 ML Neb Susp NEB SCH ×2 (07:56→19:00)
[2017-02-18] MEDS: Diltiazem 180 MG Cap.CD PO SCH (08:49)
[2017-02-18] MEDS: Hydrochlorothiazide 25 MG Tab PO SCH (08:49)
[2017-02-18] MEDS: Potassium Chloride 10 MEQ Tab.ER PO SCH ×2 (08:50→17:52)
[2017-02-18] MEDS: Digoxin 250 MCG Tab PO SCH (08:50)
[2017-02-18] MEDS: Metoprolol Tartrate 25 MG Tab PO SCH ×2 (08:50→21:04)
[2017-02-18] MEDS: Sulfamethoxazole/Trimethoprim 800-160 MG Tab PO SCH ×2 (08:51→21:09)
[2017-02-18] MEDS: Tamsulosin 0.4 MG Cap.ER PO SCH (08:51)
[2017-02-18] MEDS: Insulin Aspart 100 Units/ML 3 ML Pen SUBCUT SCH ×4 (08:51→21:17)
--- NOTE | 2017-02-18 12:25 | PN ---
DATE: 02/18/2017 HISTORY OF PRESENT ILLNESS: Mr. Cayden Ulloa is a 61-year-old male with medical history significant for hypertension, hyperlipidemia, atrial fibrillation, chronic obstructive pulmonary disease, admitted with increasing shortness of breath and was noted to be in COPD exacerbation with underlying urinary tract infection and possible bronchitis. Hospital course complicated with atrial fibrillation with rapid ventricular response and the ileus. For the last 24 hours, the patient denies any complaints of chest pain. No shortness of breath. No abdominal pain. No nausea. No vomiting. Continues to have some loose stools. The patient had a CT scan of the abdomen and pelvis, which showed evidence of ileus with dilated loops of colon, but no evidence of obstruction noted. No evidence of ischemic colitis noted. The patient denies any abdominal pain at this time. Continues to have bowel movements and passing gas. REVIEW OF SYSTEMS: Cardiovascular, respiratory, gastrointestinal, neurology, constitutional were all evaluated. PHYSICAL EXAMINATION: Vital Signs: Temperature of 97.6, pulse of 60, blood pressure 119/74, respiratory rate of 20, saturating at 93% on 2 L of oxygen. General Appearance: The patient is well oriented to time, place, and person. Follows commands spontaneously. Cardiovascular System: S1, S2 heard with normal intensity. No gallops. Respiratory System: Clear to auscultation bilaterally. No wheeze. No crepitations. Abdomen: Soft. Bowel sounds positive. Nontender. No rigidity. Extremities: No edema in bilateral lower extremities. Neurology: No gross focal neurological deficit. MEDICATIONS: Reviewed. 1. Continue with Tylenol 650 every 4 hours as needed for pain. 2. [place] 1 tablet every 6 hours as needed for pain. 3. DuoNeb 3 mL nebulizer every 6 hours. 4. Allopurinol 100 mg at bedtime. 5. Lipitor 10 mg at bedtime. 6. Pulmicort 0.5 mg nebulizer twice a day. 7. Digoxin 250 mcg daily. 8. Diltiazem 360 mg daily. 9. Hydrochlorothiazide 25 mg daily. 10.NovoLog supplemental scale. 11.Levemir 35 units subcu at bedtime. 12.Metoprolol 25 mg q.12 hourly. 13.Potassium chloride 20 mg twice a day. 14.Flomax 0.4 mg with breakfast. 15.Bactrim 1 tablet twice a day. 16.Coumadin, pharmacy to dose. LABORATORY DATA: No new labs ordered for today. ASSESSMENT: 1. Acute chronic obstructive pulmonary disease exacerbation, resolved. 2. Acute hypoxic respiratory failure. 3. Atrial fibrillation with rapid ventricular response. 4. Possible bronchitis. 5. Urinary tract infection with Enterobacter. 6. Chronic anticoagulation, Coumadin. 7. Type 2 diabetes mellitus. 8. Diarrhea. PLAN: 1. Diarrhea. The patient continues to have this loose stools. We did an x- ray of the abdomen and pelvis and also CT scan of the abdomen and pelvis, which showed evidence of dilated loops of colon, but exact etiology not clear, could be ileus. He is able to pass flatus and have some bowel movements at this time, which is loose in nature. We also checked his stool for C. diff, which was negative. We also checked his potassium, magnesium, and phosphorus, which were all within normal limits. The patient will be encouraged to ambulate around to relieve the ileus. 2. Acute respiratory failure. The patient continues to be hypoxic. The patient could have underlying hypoxic respiratory failure. The patient might benefit from home oxygen at the time of discharge. 3. Acute chronic obstructive pulmonary disease exacerbation, resolved. The patient does not have any wheeze noted on the lung exam. The patient is encouraged to use incentive spirometer and flutter valve. 4. Atrial fibrillation. The patient continues to have rapid ventricular response especially when he is ambulating. We added metoprolol 25 mg twice a day for better control of the heart rate in addition to the diltiazem and digoxin he is getting. We also checked his digoxin level, which is within normal limits. 5. Urinary tract infection. He is positive for Enterobacter, sensitive to his Bactrim, continue Bactrim for now. 6. Chronic anticoagulation. Continue with Coumadin. Pharmacy to dose the Coumadin for therapeutic INR of 2 to 3. 7. Type 2 diabetes mellitus, seems to be improving after adding Levemir. Continue with the Levemir and we did decrease steroid dosing. We will continue with supplemental scale insulin as needed for additional coverage of his blood glucose. 8. Discharge process delayed secondary to ongoing atrial fibrillation with rapid ventricular response. We will further titrate up the medication to improve his part of his rapid ventricular response systemic from his hypoxia also. We will have him on incentive spirometer and flutter valve. [facility] /[id number]
[2017-02-18] MEDS ORDERED: Warfarin 5 MG Tab PO ONE (14:00)
[2017-02-18] MEDS: atorvaSTATin 10 MG Tab PO SCH (21:09)
[2017-02-18] MEDS: Allopurinol 100 MG Tab PO SCH (21:09)
[2017-02-18] MEDS: Insulin Detemir 100 Units/ML 3 ML Pen SUBCUT SCH (21:19)
[2017-02-18] MEDS: Sodium Chloride 0.9% 10 ML Syringe FLUSH PRN ×2 (21:34→21:37)
[2017-02-19] MEDS: Albuterol/Ipratropium 3.0-0.5 MG/3 ML Neb Soln NEB SCH ×2 (00:06→07:04)
[2017-02-19] MEDS: Budesonide 0.5 MG/2 ML Neb Susp NEB SCH (07:04)
[2017-02-19] MEDS: Insulin Aspart 100 Units/ML 3 ML Pen SUBCUT SCH ×2 (08:08→11:23)
[2017-02-19] MEDS: Tamsulosin 0.4 MG Cap.ER PO SCH (08:14)
[2017-02-19] MEDS: Potassium Chloride 10 MEQ Tab.ER PO SCH (08:14)
--- NOTE | 2017-02-19 10:13 | PCM.DCSUM1 ---
Discharge Summary - Hospital Course Free Text/Narrative:: 61-year-old male with the history of atrial fibrillation, hypertension, COPD, cholelithiasis, diabetes mellitus type 2, CLL diagnosed in 2005 presenting to the emergency room on 02/11/17 for shortness breath and was diagnosed with COPD exacerbation with possible bronchitis. Also he was thought to have possible urinary tract infection but no urine culture was ordered. Patient was started on Rocephin for 2 days then changed to Bactrim DS. Patient started having diarrhea about 1 week ago and C. difficile was negative. His abdomen started being distended and CT abdomen was consistent with distended large intestine from the cecum to the descending left colon. Patient has been having rapid heartrate for the last 2 days. He is on digoxin and Cardizem and was started yesterday morning on metoprolol 25 mg twice a day. His heart rate still in the 120s. Today patient says he is feeling worse for his abdomen. His abdomen is more distended and having discomfort. Last bowel movement and passing gas was yesterday morning. Patient stated that he is being nauseous and not able to rate his oral pills. He denies vomiting, headache, upper spirits symptoms, shortness breath, cough, wheezing, chest pain, palpitation, abdominal sharp pain , urinary symptoms, lower extremities edema, unilateral weakness/numbness, any other symptoms or concerns. Abdomen x-ray was done today and showed this year colon distention without free air. I spoke with Dr. Stanley from [facility] who kindly accepted transferring the patient. Patient was transferred in stable condition. - Discharge Data Discharge Date: 02/19/17 Discharge Disposition: DC/Tfer to Acute Hospital 02 Condition: Stable - Discharge Diagnosis/Problem(s) (1) Abdominal distension SNOMED Code(s): 33689465 ICD Code: R14.0 - ABDOMINAL DISTENSION (GASEOUS) Status: Acute Current Visit: Yes (2) Diarrhea SNOMED Code(s): 91247513 ICD Code: R19.7 - DIARRHEA, UNSPECIFIED Status: Acute Current Visit: Yes (3) Nausea SNOMED Code(s): 531678605 ICD Code: R11.0 - NAUSEA Status: Acute Current Visit: Yes (4) Atrial fibrillation with RVR SNOMED Code(s): 837211404754279 ICD Code: I48.91 - UNSPECIFIED ATRIAL FIBRILLATION Status: Acute Current Visit: Yes (5) Acute exacerbation of COPD with asthma SNOMED Code(s): 34799616394238321 ICD Code: J44.1 - CHRONIC OBSTRUCTIVE PULMONARY DISEASE W (ACUTE) EXACERBATION; J45.901 - UNSPECIFIED ASTHMA WITH (ACUTE) EXACERBATION Status: Acute Current Visit: Yes (6) COPD exacerbation SNOMED Code(s): 132262500384128 ICD Code: J44.1 - CHRONIC OBSTRUCTIVE PULMONARY DISEASE W (ACUTE) EXACERBATION Status: Acute Current Visit: Yes (7) Leukocytosis SNOMED Code(s): 199539041 ICD Code: D72.829 - ELEVATED WHITE BLOOD CELL COUNT, UNSPECIFIED Status: Acute Current Visit: Yes - Patient Summary/Data Consults: Consultations 02/13/17 11:45 OT Evaluation and Treatment [CONS] Routine PT Evaluation and Treatment [CONS] Routine - Discharge Plan Home Medications: Home Meds Digoxin 0.25 mg PO BEDTIME 02/10/13 [History] metFORMIN [Glucophage XR] 1,000 mg PO BIDM 02/10/13 [History] Albuterol Sulfate [Proair Hfa] 1 each INH BID 02/11/17 [History] Allopurinol [Zyloprim] 100 mg PO TID 02/11/17 [History] Diltiazem HCl [Tiazac] 360 mg PO DAILY 02/11/17 [History] Hydrochlorothiazide 25 mg PO DAILY 02/11/17 [History] Tamsulosin [Flomax] 0.4 mg PO BEDTIME 02/11/17 [History] Warfarin [Coumadin] 2.5 mg PO .SUN 02/11/17 [History] Warfarin [Coumadin] 7.5 mg PO DAILY 02/11/17 [History] atorvaSTATin [Lipitor] 10 mg PO BEDTIME 02/11/17 [History] - Discharge Summary/Plan Comment DC Time >30 min.: Yes (35 minutes were spent in dischange and arranging transferring the patient) - General Info Date of Service: 02/19/17 - Review of Systems General: Denies: Fever HEENT: Reports: No Symptoms Pulmonary: Denies: Cough, Sputum, Hemoptysis Cardiovascular: Reports: No Symptoms Gastrointestinal: Denies: Melena Genitourinary: Reports: No Symptoms Musculoskeletal: Reports: No Symptoms Skin: Reports: No Symptoms Neurological: Reports: No Symptoms Psychiatric: Reports: No Symptoms - Patient Data Vitals - Most Recent: Last Vital Signs Temp 37.0 C 02/19/17 07:33 Pulse 73 02/19/17 07:33 Resp 20 02/19/17 07:33 BP 117/69 02/19/17 07:33 Pulse Ox 92 L 02/19/17 07:33 Weight - Most Recent: 106.05 kg I&O - Last 24 hours: Intake & Output 02/18/17 02/19/17 02/19/17 22:59 06:59 14:59 Intake Total 840 400 Output Total 850 Balance 840 -450 Lab Results - Last 24 hrs: Laboratory Results - last 24 hr 02/18/17 02/18/17 02/18/17 Range/Units 11:01 17:19 21:06 WBC (5.0-10.0) 10^3/uL RBC (4.6-6.2) 10^6/uL Hgb (14.0-18.0) g/dL Hct (40.0-54.0) % MCV (80-100) fL MCH (27.0-34.0) pg MCHC (33.0-35.0) g/dL Plt Count (150-450) 10^3/uL PT (9.0-12.0) SEC INR (0.9-1.2) POC Glucose 198 H 148 H 160 H (70-105) mg/dl 02/19/17 02/19/17 Range/Units 06:30 06:30 WBC 14.4 H (5.0-10.0) 10^3/uL RBC 5.41 (4.6-6.2) 10^6/uL Hgb 16.3 D (14.0-18.0) g/dL Hct 48.3 (40.0-54.0) % MCV 89.3 (80-100) fL MCH 30.1 (27.0-34.0) pg MCHC 33.7 (33.0-35.0) g/dL Plt Count 216 (150-450) 10^3/uL PT 21.8 H (9.0-12.0) SEC INR 2.2 H (0.9-1.2) POC Glucose (70-105) mg/dl Med Orders - Current: Current Medications Acetaminophen (Tylenol) 650 mg PO Q4H PRN PRN Reason: Pain (Mild 1-3)/fever Albuterol/Ipratropium (Duoneb 3.0-0.5 Mg/3 Ml) 3 ml NEB Q6HRRT [facility] Last Admin: 02/19/17 07:04 Dose: 3 ml Allopurinol (Zyloprim) 100 mg PO BEDTIME [facility] Last Admin: 02/18/17 21:09 Dose: 100 mg Atorvastatin Calcium (Lipitor) 10 mg PO BEDTIME [facility] Last Admin: 02/18/17 21:09 Dose: 10 mg Benzocaine/Menthol (Cepacol Sore Throat) 1 lozenge MUCMEM 5XDAY PRN PRN Reason: Sore Throat Budesonide (Pulmicort) 0.5 mg NEB BIDRT [facility] Last Admin: 02/19/17 07:04 Dose: 0.5 mg Digoxin (Lanoxin) 250 mcg PO DAILY [facility] Last Admin: 02/18/17 08:50 Dose: 250 mcg Diltiazem HCl (Cardizem Cd) 360 mg PO DAILY [facility] Last Admin: 02/18/17 08:49 Dose: 360 mg Hydrochlorothiazide (Hydrochlorothiazide) 25 mg PO DAILY [facility] Last Admin: 02/18/17 08:49 Dose: 25 mg Insulin Aspart (Novolog) 0 unit SUBCUT QIDACANDBED [facility] PRN Reason: Protocol Last Admin: 02/19/17 08:08 Dose: Not Given Insulin Detemir (Levemir) 35 unit SUBCUT BEDTIME [facility] Last Admin: 02/18/17 21:19 Dose: 35 units Metoprolol Tartrate (Lopressor) 25 mg PO Q12HR [facility] Last Admin: 02/18/17 21:04 Dose: 25 mg Ondansetron HCl (Zofran Odt) 4 mg PO Q6H PRN PRN Reason: nausea, able to take PO Potassium Chloride (Klor-Con 10) 20 meq PO BIDMEALS [facility] Last Admin: 02/19/17 08:14 Dose: 20 meq Sodium Chloride (Saline Flush) 10 ml FLUSH ASDIRECTED PRN PRN Reason: Keep Vein Open Last Admin: 02/18/17 21:37 Dose: 10 ml Sodium Chloride ([place] Nasal [place]) 0 ml NASBOTH Q2H PRN PRN Reason: Dryness Tamsulosin HCl (Flomax) 0.4 mg PO PCBREAKFAST [facility] Last Admin: 02/19/17 08:14 Dose: Not Given Trimethoprim/Sulfamethoxazole (Septra Ds) 1 tab PO BID [facility] Last Admin: 02/18/17 21:09 Dose: 1 tab Warfarin Sodium (Pharmacy To Dose - Warfarin) 1 dose .XX ASDIRECTED [facility] Zolpidem Tartrate (Ambien) 5 mg PO BEDTIME PRN PRN Reason: Sleep Discontinued Medications Hydrocodone Bitart/Acetaminophen ([place] 325-5 Mg) 1 tab PO Q6H PRN PRN Reason: Abdominal Pain Albuterol/Ipratropium (Duoneb 3.0-0.5 Mg/3 Ml) 3 ml NEB ONETIME ONE Stop: 02/11/17 14:18 Last Admin: 02/11/17 14:30 Dose: 3 ml Albuterol/Ipratropium (Duoneb 3.0-0.5 Mg/3 Ml) 3 ml NEB .Q6H [facility] Ceftriaxone Sodium (Rocephin) 1 gm IVPUSH Q24H [facility] Last Admin: 02/11/17 16:49 Dose: 1 gm Ceftriaxone Sodium (Rocephin) 1 gm IVPUSH Q24H [facility] Ceftriaxone Sodium (Rocephin) 1 gm IVPUSH Q24H [facility] Last Admin: 02/12/17 17:35 Dose: 1 gm Potassium Chloride 10 meq/ (Premix) 100 mls @ 100 mls/hr IV ONETIME ONE Stop: 02/11/17 16:01 Last Admin: 02/11/17 15:24 Dose: 100 mls/hr Potassium Chloride 10 meq/ (Premix) 100 mls @ 50 mls/hr IV .Q2H [facility] Azithromycin 500 mg/ Sodium (Chloride) 250 mls @ 250 mls/hr IV DAILY [facility] Last Admin: 02/11/17 17:06 Dose: Not Given Azithromycin 500 mg/ Sodium (Chloride) 250 mls @ 250 mls/hr IV Q24H [facility] Last Admin: 02/12/17 18:01 Dose: 250 mls/hr Potassium Chloride 20 meq/ (Premix) 100 mls @ 50 mls/hr IV Q2H [facility] Stop: 02/11/17 22:59 Last Admin: 02/11/17 21:42 Dose: 50 mls/hr Sodium Chloride (Normal Saline) 1,000 mls @ 75 mls/hr IV ASDIRECTED [facility] Stop: 02/16/17 23:59 Last Admin: 02/16/17 16:02 Dose: 75 mls/hr Insulin Aspart (Novolog) 0 unit SUBCUT TIDAC [facility] PRN Reason: Protocol Last Admin: 02/15/17 08:51 Dose: 2 units Insulin Detemir (Levemir) 25 unit SUBCUT DAILY [facility] Insulin Detemir (Levemir) 35 unit SUBCUT DAILY [facility] Iopamidol (Isovue-370 (76%)) 100 ml IVPUSH ONETIME ONE Stop: 02/16/17 14:28 Last Admin: 02/16/17 15:55 Dose: 90 ml Lidocaine HCl (Xylocaine-Mpf 1%) 1 ml INJECT ONETIME ONE Stop: 02/11/17 15:03 Last Admin: 02/11/17 15:31 Dose: 1 ml Loperamide HCl (Imodium) 2 mg PO Q4H PRN PRN Reason: Diarrhea Methylprednisolone Sodium Succinate (Solu-Medrol) 125 mg IVPUSH ONETIME ONE Stop: 02/11/17 14:18 Last Admin: 02/11/17 15:21 Dose: 125 mg Methylprednisolone Sodium Succinate (Solu-Medrol) 40 mg IVPUSH .Q8 [facility] Methylprednisolone Sodium Succinate (Solu-Medrol) 40 mg IVPUSH Q8H [facility] Last Admin: 02/17/17 05:42 Dose: 40 mg Methylprednisolone Sodium Succinate (Solu-Medrol) 40 mg IVPUSH ONETIME ONE Stop: 02/14/17 15:16 Last Admin: 02/14/17 15:17 Dose: 40 mg Non-Formulary Medication (Digoxin [Digoxin]) 0.25 mg PO DAILY [facility] Last Admin: 02/12/17 08:32 Dose: Not Given No Warfarin (Today ) 0 each PO ONETIME ONE Stop: 02/13/17 14:01 Last Admin: 02/13/17 14:01 Dose: Not Given Hold Warfarin (Today ) 0 each PO ONETIME ONE Stop: 02/17/17 14:01 Last Admin: 02/17/17 13:57 Dose: Not Given Potassium Chloride (Klor-Con 10) 40 meq PO ONETIME ONE Stop: 02/11/17 15:04 Last Admin: 02/11/17 15:20 Dose: 40 meq Potassium Chloride (Klor-Con 10) 40 meq PO BIDMEALS [facility] Last Admin: 02/14/17 08:11 Dose: 40 meq Potassium Chloride (Klor-Con 10) 40 meq PO ONETIME ONE Stop: 02/13/17 18:40 Last Admin: 02/13/17 22:15 Dose: 40 meq Potassium Chloride (Klor-Con 10) 40 meq PO TID [facility] Last Admin: 02/16/17 08:56 Dose: 40 meq Warfarin Sodium (Pharmacy To Dose - Warfarin) 1 dose .XX ASDIRECTED [facility] Warfarin Sodium (Coumadin) 7.5 mg PO ONETIME ONE Stop: 02/11/17 17:31 Last Admin: 02/11/17 17:58 Dose: 7.5 mg Warfarin Sodium (Coumadin) 5 mg PO ONETIME ONE Stop: 02/12/17 14:01 Last Admin: 02/12/17 14:43 Dose: 5 mg Warfarin Sodium (Coumadin) 5 mg PO ONETIME ONE Stop: 02/14/17 14:01 Last Admin: 02/14/17 14:02 Dose: 5 mg Warfarin Sodium (Coumadin) 5 mg PO DAILY@1400 [facility] Stop: 02/15/17 14:01 Last Admin: 02/15/17 14:39 Dose: 5 mg Warfarin Sodium (Coumadin) 2.5 mg PO ONETIME ONE Stop: 02/16/17 14:01 Last Admin: 02/16/17 15:24 Dose: 2.5 mg Warfarin Sodium (Coumadin) 5 mg PO ONETIME ONE Stop: 02/18/17 14:01 Last Admin: 02/18/17 14:32 Dose: 5 mg - Exam General: Reports: Alert, Oriented HEENT: Reports: Pupils Equal, Pupils Reactive, EOMI, Mucous Membr. Moist/[place] Neck: Reports: Supple, No JVD Lungs: Reports: Clear to Auscultation, Normal Respiratory Effort. Denies: Crackles, Rales, Rhonchi, Rub, Stridor, Wheezing Cardiovascular: Reports: Irregular Rhythm GI/Abdominal Exam: Non-Tender, No Organomegaly, Distended, Abnormal Bowel Sounds (hyperactive). No: Guarding, Rigid, Rebound, Tender (Male) Exam: Deferred Rectal (Males) Exam: Deferred Back Exam: Reports: Normal Inspection, Full Range of Motion. Denies: CVA Tenderness (L), CVA Tenderness (R) Extremities: Normal Inspection, Normal Range of Motion, Non-Tender, No Pedal Edema, Normal Capillary Refill Skin: Reports: Warm, Dry, Intact Wound/Incisions: Reports: Healing Well Neurological: Reports: No New Focal Deficit Psy/Mental Status: Reports: Alert, Normal Affect, Normal Mood *Q Meaningful Use (DIS) - VTE *Q VTE Criteria *Q: - Stroke *Q Stroke Criteria *Q: - AMI *Q AMI Criteria *Q:
[2017-02-19 11:07] VITALS: BP 111/85
--- NOTE | 2017-02-19 11:08 | CR ---
Clinical history: 61-year-old hospitalized male patient with abdominal distention. "Abnormal colonic distention but normal small bowel and rectosigmoid colon" reported on recent CT scan 17 February. Interpretation: Acute abdominal series (3 upright films) confirms persistent, chronic, severe large bowel distention with differential air-fluid levels... now with gastric distention but no apparent small bowel dilatat ion centrally. No abdominal soft tissue mass or foreign bodies. No free intraperitoneal air. Lung bases clear. 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
[2017-02-19] MEDS: Hydrochlorothiazide 25 MG Tab PO SCH (11:21)
[2017-02-19] MEDS: Diltiazem 180 MG Cap.CD PO SCH (11:21)
[2017-02-19] MEDS: Digoxin 250 MCG Tab PO SCH (11:22)
[2017-02-19] MEDS: Metoprolol Tartrate 25 MG Tab PO SCH (11:22)
[2017-02-19] MEDS: Sulfamethoxazole/Trimethoprim 800-160 MG Tab PO SCH (11:22)
[2017-02-19] MEDS ORDERED: Warfarin 5 MG Tab PO ONE (14:00)
== END 2017-02-19 12:30 | DRG 189 ==
LOC: DL.ED 13:53 → DL.MS 16:06 → UNDOADMIN 16:06 → DL.MS 16:16
PROVIDERS: ADMIT Internal Medicine; ATTEND Internal Medicine
DX: J96.21 Acute and chronic respiratory failure with hypoxia (principal); J44.1 Chronic obstructive pulmonary disease with (acute) exacerbation; C91.10 Chronic lymphocytic leukemia of B-cell type not having achieved remission; N39.0 Urinary tract infection, site not specified; I48.91 Unspecified atrial fibrillation; I10 Essential (primary) hypertension; J44.9 Chronic obstructive pulmonary disease, unspecified; K80.20 Calculus of gallbladder without cholecystitis without obstruction; E11.9 Type 2 diabetes mellitus without complications; R14.0 Abdominal distension (gaseous); R19.7 Diarrhea, unspecified; R11.0 Nausea; D72.829 Elevated white blood cell count, unspecified; R60.0 Localized edema; Z79.01 Long term (current) use of anticoagulants; Z87.891 Personal history of nicotine dependence; E87.6 Hypokalemia
CPT/HCPCS: 36415; 71010; 71020; 71260; 74000; 74020; 74176; 80048; 80053; 80162; 81001; 82962; 83605; 83735; 83880; 84100; 84132; 85025; 85027; 85610; 87040; 87070; 87086; 87088; 87186; 87205; 87493; 94010; 94640; 94667; 94760; 96365; 96375; 97166-GO; 99285; A9270-GY; J0456; J0696; J1815-GY; J2920; J2930; J3480; J7030; J7050; Q9967